=== PATIENT | female | born 1990 | race African-American/Black ===

== ENCOUNTER 2016-08-08 02:37 | Emergency (ER) | payer BC, OTHER ==
[~2016-08-08] VITALS: Ht 167.6 cm; Wt 68.0 kg
[~2016-08-08 02:37] MED LIST: APAP500 PO; BICARSIM80 MG PO; COLACE 100 MG100 MG PO; Clindamycin PO; FEROSOL PO; FLAGYL500 MG PO; IBUPROFEN 600600 M1 PO; LANOLIN56 GM TOP; NORCO 5-325 TA1 EACH PO; PRENATAL PO; [UNRECOGNIZED DRUG - OTHER] PO
[2016-08-08 03:26] LABS: URINE BILIRUBIN NEGATIVE (Negative); URINE BLOOD NEGATIVE (Negative); URINE COLOR YELLOW; URINE GLUCOSE-RANDOM* NEGATIVE (Negative); URINE KETONES NEGATIVE (Negative); URINE LEUKOCYTES-REFLEX NEGATIVE (Negative); URINE PROTEIN (DIPSTICK) NEGATIVE (Negative); URINE SPECIFIC GRAVITY 1.025 (1.003-1.035)
[2016-08-08 03:27] LABS: ABSOLUTE NEUTROPHILS 4.3 thou/uL (1.4-8.2); BASOPHILS 0.6 % (0.0-2.0); EOSINOPHILS 1.2 % (0.0-3.0); HEMATOCRIT 40.9 % (37.0-47.0); HEMOGLOBIN 13.6 gm/dL (12.0-15.0); LYMPHOCYTES 39.4 % (24.0-44.0); MCHC 33.3 g/dL (28.0-37.0); MCV 87.2 fL (80.0-100.0); MONOCYTES 8.3 % (1.0-8.0); PLATELET COUNT 198 thou/uL (150-400); POLYS 50.5 % (36.0-66.0); RBC 4.69 mil/uL (4.20-5.00); RDW 13.9 % (10.5-14.5); WBC 8.6 thou/uL (4.0-11.0)
[2016-08-08 03:35] LABS: CALCIUM 9.3 mg/dL (8.5-10.1); CREATININE 0.9 mg/dL (0.6-1.0); POTASSIUM 3.6 mmol/L (3.5-5.1)
[2016-08-08 03:36] LABS: MANUAL DIFF NO
[2016-08-08 03:41] LABS: ALBUMIN 4.1 g/dL (3.4-5.0); TOTAL BILIRUBIN 0.3 mg/dL (<0.1-1.0); TOTAL PROTEIN 7.5 g/dL (6.4-8.2)
[2016-08-08] MEDS ORDERED: NORCO 5-325 TA1 EACH PO (05:29)
[2016-08-08] MEDS ORDERED: ZOFRAN ODT4 MG PO (05:29)
[2016-08-08 05:45] VITALS: BP 95/65
== END 2016-08-08 05:46 | disposition home or self-care (01) ==
LOC: ER 02:37
PROVIDERS: Emergency Medicine
DX: K80.80 Other cholelithiasis without obstruction (principal)

== ENCOUNTER 2019-04-08 19:54 | Emergency (ER) | payer OTHER ==
[~2019-04-08] VITALS: Ht 157.5 cm; Wt 63.5 kg
[~2019-04-08 19:54] MED LIST changes: +ZOFRAN ODT4 MG PO
[2019-04-08] MEDS ORDERED: MOBIC7.5 MG PO (20:37)
[2019-04-08 21:27] VITALS: BP 131/87
== END 2019-04-08 21:29 | disposition home or self-care (01) ==
LOC: ER 19:54
DX: M71.21 Synovial cyst of popliteal space [Baker], right knee (principal); Z90.49 Acquired absence of other specified parts of digestive tract; Z98.890 Other specified postprocedural states

== ENCOUNTER 2019-05-05 09:28 | Emergency (ER) | payer OTHER ==
[~2019-05-05] VITALS: Ht 157.5 cm; Wt 63.5 kg
[~2019-05-05 09:28] MED LIST changes: +MOBIC7.5 MG PO
[2019-05-05] MEDS ORDERED: GUAIFEN-CODEINE10 ML PO (10:43)
[2019-05-05 10:53] VITALS: BP 114/79
== END 2019-05-05 11:20 | disposition home or self-care (01) ==
LOC: ER 09:28
DX: J10.1 Influenza due to other identified influenza virus with other respiratory manifestations (principal)